=== PATIENT | female | born 1990 | race Caucasian/White ===

== ENCOUNTER 2024-04-23 19:14 | Emergency (ER) | payer OTHER ==
[~2024-04-23] VITALS: Ht 157.5 cm; Wt 90.0 kg
[~2024-04-23 19:14] MED LIST: FLINTSTONES1 EAC1 PO; NORCO 5-325 TA1 EACH PO; SILVADENE20 GM TOP; ZOFRAN ODT4 MG SL
[2024-04-23] MEDS ORDERED: ondansetron HCL 4 MG/2 ML VIAL IV ONE (19:30)
[2024-04-23] MEDS ORDERED: DEXTROAMP-AMPHE15 MG PO (19:30)
[2024-04-23] MEDS ORDERED: GABAPENTIN300 MG PO (19:30)
[2024-04-23] MEDS ORDERED: BUPROPION XL150 MG PO (19:30)
[2024-04-23] MEDS ORDERED: VITAMIN D21250 MCG PO (19:31)
[2024-04-23 19:50] LABS: BASOPHILS 0.3 % (0-2); EOSINOPHILS 0.2 % (0-6); HEMOGLOBIN 12.8 g/dL (12.0-18.0); LYMPHOCYTES 6.8 % (24-44); MCH 29.6 (27-36); MCHC 33.7 g/dl (30-36); MCV 87.7 fl (81-99); MONOCYTES 6.5 % (0-12); NEUTROPHILS 86.2 % (39-80); PLATELET COUNT 196 K/uL (140-440); RBC 4.33 M/ul (4.3-5.7); RDW 13.5 (10.5-15.0)
[2024-04-23 19:50] LABS: BILIRUBIN, URINE NEGATIVE (negative); BLOOD/HGB, URINE NEGATIVE (Negative); KETONE, URINE SMALL (Negative); LEUK ESTERASE, URINE NEGATIVE (negative); NITRITE, URINE NEGATIVE (negative); PH, URINE 6.5 (5-7)
[2024-04-23 20:05] LABS: AMPHETAMINES, URINE POSITIVE (NEGATIVE); BARBITURATES, URINE NEGATIVE (NEGATIVE); BENZODIAZEPINE, URINE NEGATIVE (NEGATIVE); BUPRENORPHINE, URINE NEGATIVE (NEGATIVE); CANNABINOID, URINE POSITIVE (NEGATIVE); COCAINE, URINE NEGATIVE (NEGATIVE); ECSTASY, URINE NEGATIVE (NEGATIVE); FENTANYL, URINE NEGATIVE (NEGATIVE); METHADONE, URINE NEGATIVE (NEGATIVE); OPIATES, URINE NEGATIVE (NEGATIVE); OXYCODONE, URINE NEGATIVE (NEGATIVE); PHENCYCLIDINE, URINE NEGATIVE (NEGATIVE)
[2024-04-23 20:06] LABS: ALBUMIN 3.7 g/dL (3.4-5.0); ALBUMIN/GLOBULIN RATIO 0.97 (1.1-2.4); ANION GAP 13.6 (7-21); BILIRUBIN, TOTAL 0.7 ng/dL (0.2-1.0); BUN/CREATININE RATIO 9.8 (6.0-28.6); CALCIUM 9.2 mg/dL (8.5-10.1); CREATININE, SERUM 1.02 mg/dL (0.55-1.02); MAGNESIUM 1.6 mg/dL (1.8-2.4); POTASSIUM 3.6 mmol/L (3.5-5.1); PROTEIN, TOTAL 7.5 g/dL (6.4-8.2)
[2024-04-23] MEDS ORDERED: LACTATED RINGER'S 1,000 ML IV ONE (20:15)
[2024-04-23] MEDS ORDERED: KETOROLAC TROMETHAMINE 30 MG/ML VIAL IV ONE (20:15)
[2024-04-23] MEDS ORDERED: FAMOTIDINE 20 MG/ 2 ML VIAL IV ONE (20:15)
[2024-04-23] MEDS ORDERED: CEFTRIAXONE/SODIUM CHLORIDE 2 GM/100 ML PIGGYBACK IV ONE (21:30)
[2024-04-23 21:59] LABS: LACTIC ACID, BLOOD 0.5 mmol/L (0.4-2.0)
[2024-04-23] MEDS ORDERED: CEPHALEXIN500 M1 PO (22:15)
[2024-04-23] MEDS ORDERED: ONDANSETRON ODT4 MG PO (22:15)
[2024-04-23 22:35] VITALS: BP 114/67
== END 2024-04-23 22:35 | disposition home or self-care (01) ==
LOC: ED 19:14
PROVIDERS: Internal Medicine
DX: N12 Tubulo-interstitial nephritis, not specified as acute or chronic (principal); K59.00 Constipation, unspecified; K21.9 Gastro-esophageal reflux disease without esophagitis; Z88.1 Allergy status to other antibiotic agents; Z88.5 Allergy status to narcotic agent; Z79.899 Other long term (current) drug therapy
CPT/HCPCS: 36415; 74177; 80053; 80307; 81003; 83605; 83690; 83735; 84703; 85025; 96361; 96375; 99284-25; J0696; J1885; J2405; J7121; Q9967